=== PATIENT | male | born 1995 | race Hispanic/Latino ===

== ENCOUNTER 2021-03-08 15:21 | Inpatient (IN) | payer SELFPAY ==
[~2021-03-08] VITALS: Ht 167.6 cm; Wt 77.0 kg
[~2021-03-08 15:21] MED LIST: LORTAB5 PO; NO
--- NOTE | 2021-03-08 15:45 | NUR ---
PT HAS KUSMAL RESPIRATIONS, AOX3, TACHYPNEA AND TACHYCARDIC AT 140. PT STATES HE HAS NO MEDICAL ISSUES, BG OF 461 ON ACCUCHECK.
[2021-03-08 16:19] LABS: IMMATURE GRANULOCYTES 0.3 % (0.0-5.0); MEAN CORPUSCULAR HGB 32.4 pG CALC (26.0-32.0); MEAN CORPUSCULAR HGB CONC 34.2 g/dL CAL (32.0-36.0); NEUT# 4.3 thou/uL (1.82-7.42); RED BLOOD COUNT 5.09 mill/uL (4.70-6.10); RED CELL DISTRI WIDTH 12.5 % (11.5-15.5)
[2021-03-08 16:21] LABS: HEMATOCRIT 48.2 % (39.0-50.0); HEMOGLOBIN 16.5 g/dl (14.0-18.0); MEAN CELL VOLUME 94.7 fL CALC (80.0-100.0)
[2021-03-08 16:32] LABS: ALBUMIN 4.8 g/dL (3.2-5.0); ALKALINE PHOSPHATASE 149 u/l (38-126); BUN 10 mg/dL (9-20); BUN/CREATININE RATIO 10 (12-20 (CALC)); CHLORIDE 97 mmol/l (95-108); CREATININE 1.1 mg/dL (0.7-1.3); GFR > 60 ML/MIN (>=60 (CALC)); GFR FOR AFR.AMER. > 60 ML/MIN (>=60 (CALC)); POTASSIUM 3.3 mmol/l (3.5-5.1); SGOT/AST 19 u/l (17-59); SODIUM 136 mmol/l (137-146); TOTAL PROTEIN 7.9 g/dL (6.3-8.2)
--- NOTE | 2021-03-08 16:33 | NUR ---
PT SITTING IN BED, AOX3, RESPIRATORY DISTRESS NOTED AND PT ON CONTINUOUS CARDIAC MONITORING
[2021-03-08 16:34] LABS: URINE BLOOD DIPSTICK SMALL (NEGATIVE); URINE COLOR YELLOW; URINE GLUCOSE - DIPSTICK >=1000 mg/dL (NEGATIVE); URINE KETONE >=80 mg/dL (NEGATIVE); URINE LEUK ESTERASE NEGATIVE (NEGATIVE); URINE PROTEIN - DIPSTICK 30 mg/dL (NEG-TRACE); URINE SPECIFIC GRAVITY 1.025; URINE UROBILINOGEN - DIPSTICK 0.2 E.U./dL (0.2)
[2021-03-08 16:37] LABS: ANION GAP 37 (6-22 (CALC)); CARBON DIOXIDE < 5 mmol/l (22-30)
[2021-03-08 16:39] LABS: URINE BILIRUBIN - DIPSTICK NEGATIVE (NEGATIVE); URINE NITRITE - DIPSTICK NEGATIVE (Negative)
[2021-03-08 16:44] LABS: MYOGLOBIN 97 ng/mL (0 - 121)
[2021-03-08 17:05] LABS: URINE WBC 0-2 WBC/hpf (0-5)
--- NOTE | 2021-03-08 17:33 | NUR ---
GAVE REPORT TO SRAVAN WALKER, AWAITING COVID RESULTS TO TRANSPORT PT TO FLOOR. CARDIAC MONITORING BEDSIDE
--- NOTE | 2021-03-08 17:50 | NUR ---
PT TRANSPORTED TO ICU WITH BOTTLE CAPPING MACHINE OPERATOR
[2021-03-08 18:36] LABS: ANION GAP 33 (6-22 (CALC)); BUN 11 mg/dL (9-20); BUN/CREATININE RATIO 11 (12-20 (CALC)); CHLORIDE 99 mmol/l (95-108); GFR > 60 ML/MIN (>=60 (CALC)); GFR FOR AFR.AMER. > 60 ML/MIN (>=60 (CALC)); POTASSIUM 3.3 mmol/l (3.5-5.1); SODIUM 134 mmol/l (137-146)
[2021-03-08 18:46] LABS: CARBON DIOXIDE 5 mmol/l (22-30)
--- NOTE | 2021-03-08 18:50 | NUR ---
SBAR RECEIVED FROM DENISE HINSON.
[2021-03-08 19:00] VITALS: BP 119/83
--- NOTE | 2021-03-08 19:50 | NUR ---
ASSESSMENT COMPLETE. PATIENT RESTING QUIELTY, NO DISTRESS NOTED. DENIES PAIN AT THIS TIME. INSULIN DRIP AT 4 UNITS/HR, BG 338 @ 1930. SECOND LITER OF NORMAL SALINE BOLUS INFUSING, PATIENT TOLERATING WELL. NO CONCERNS EXPRESSED AT THIS TIME, CALL LIGHT WITHIN REACH.
[2021-03-08 20:00] VITALS: BP 116/81
[2021-03-08 21:00] VITALS: BP 108/78
[2021-03-08 21:52] LABS: BUN 11 mg/dL (9-20); BUN/CREATININE RATIO 13 (12-20 (CALC)); CHLORIDE 103 mmol/l (95-108); CREATININE 0.8 mg/dL (0.7-1.3); GFR > 60 ML/MIN (>=60 (CALC)); GFR FOR AFR.AMER. > 60 ML/MIN (>=60 (CALC)); SODIUM 134 mmol/l (137-146)
[2021-03-08 21:59] LABS: ANION GAP 26 (6-22 (CALC))
[2021-03-08 22:00] VITALS: BP 102/75
[2021-03-08 22:00] LABS: CARBON DIOXIDE 8 mmol/l (22-30)
--- NOTE | 2021-03-08 22:35 | NUR ---
BG 267, INSULIN DRIP TITRATED DOWN TO 3 UNITS/HR. MAGNESIUM LEVEL REPORTED 0.7, MAGNESIUM 2 GM INITIATED.
[2021-03-08 23:00] VITALS: BP 106/73
[2021-03-09] VITALS (17 sets, daily range): BP systolic 95–132; BP diastolic 59–84
--- NOTE | 2021-03-09 00:39 | NUR ---
RESTING QUIETLY IN BED. BG 242, NO CHANGE TO INSULIN DRIP. MAGNESIUM BAG 1 OF 2 COMPLETE, BAG 2 STARTED. PATIENT STABLE, NO DISTRESS NOTED. CALL LIGHT WITHIN REACH.
[2021-03-09 01:45] LABS: ANION GAP 22 (6-22 (CALC)); BUN 10 mg/dL (9-20); BUN/CREATININE RATIO 14 (12-20 (CALC)); CARBON DIOXIDE 10 mmol/l (22-30); CHLORIDE 104 mmol/l (95-108); CREATININE 0.7 mg/dL (0.7-1.3); GFR > 60 ML/MIN (>=60 (CALC)); GFR FOR AFR.AMER. > 60 ML/MIN (>=60 (CALC)); POTASSIUM 3.1 mmol/l (3.5-5.1); SODIUM 133 mmol/l (137-146)
--- NOTE | 2021-03-09 03:10 | NUR ---
CLARIFICATION RECEIVED FROM DR. OSORIO. TOTAL 4GM MAGNESIUM TO BE GIVEN.
--- NOTE | 2021-03-09 04:30 | NUR ---
BG 194. IVF'S CHANGED PER PROTOCOL D5 1/2NS WITH 40MEQ KCL @150/HR. PATIENT INCONTINENT OF URINE. PARTIAL SPONGE BATH AND LINEN CHANGE COMPLETE. PATIENT DENIES PAIN AND NO DISTRESS NOTED. ASSISTED BACK ONTO BED. CALL LIGHT WITHIN REACH, INSTRUCTED TO CALL FOR ASSISTANCE.
[2021-03-09 06:10] LABS: ANION GAP 19 (6-22 (CALC)); BUN 9 mg/dL (9-20); BUN/CREATININE RATIO 14 (12-20 (CALC)); CARBON DIOXIDE 12 mmol/l (22-30); CHLORIDE 106 mmol/l (95-108); CREATININE 0.7 mg/dL (0.7-1.3); GFR > 60 ML/MIN (>=60 (CALC)); GFR FOR AFR.AMER. > 60 ML/MIN (>=60 (CALC)); POTASSIUM 3.2 mmol/l (3.5-5.1); SODIUM 134 mmol/l (137-146)
--- NOTE | 2021-03-09 08:09 | NUR ---
PT SEEN AWAKE, ALERT, ORIENTED X 3, PERHAPS A BIT FOGGY THIS MORNING. LUNGS CLEAR, RA. PT ABLE TO SWALLOW POTASSIUM PILLS WITHOUT DIFFICULTY. INSULIN DRIP CHANGED FROM 2 UP TO 3 PER SCALE AND BS 247.
[2021-03-09 10:31] LABS: ANION GAP 17 (6-22 (CALC)); BUN 9 mg/dL (9-20); BUN/CREATININE RATIO 14 (12-20 (CALC)); CHLORIDE 104 mmol/l (95-108); CREATININE 0.6 mg/dL (0.7-1.3); GFR > 60 ML/MIN (>=60 (CALC)); GFR FOR AFR.AMER. > 60 ML/MIN (>=60 (CALC)); POTASSIUM 2.8 mmol/l (3.5-5.1); SODIUM 133 mmol/l (137-146)
[2021-03-09 10:32] LABS: CARBON DIOXIDE 15 mmol/l (22-30)
--- NOTE | 2021-03-09 13:21 | NUR ---
PT APPEARS GROGGY, MOVES SLOWLY IN ROOM. INSULIN DRIP CONTINUES, IVF CONTINUES.
[2021-03-09 13:31] LABS: ANION GAP 18 (6-22 (CALC)); BUN 9 mg/dL (9-20); BUN/CREATININE RATIO 16 (12-20 (CALC)); CARBON DIOXIDE 15 mmol/l (22-30); CHLORIDE 104 mmol/l (95-108); CREATININE 0.6 mg/dL (0.7-1.3); GFR > 60 ML/MIN (>=60 (CALC)); GFR FOR AFR.AMER. > 60 ML/MIN (>=60 (CALC)); POTASSIUM 3.3 mmol/l (3.5-5.1); SODIUM 133 mmol/l (137-146)
--- NOTE | 2021-03-09 16:04 | NUR ---
PT WITH VISITOR AT BEDSIDE, CONTINUES AT REST IN NO ACUTE DISTRESS. ACCUCHECKS CONTINUE HOURLY, INSULIN DRIP TITRATED ACCORDINGLY.
[2021-03-09 18:05] LABS: ANION GAP 13 (6-22 (CALC)); BUN 7 mg/dL (9-20); BUN/CREATININE RATIO 12 (12-20 (CALC)); CARBON DIOXIDE 18 mmol/l (22-30); CHLORIDE 104 mmol/l (95-108); CREATININE 0.6 mg/dL (0.7-1.3); GFR > 60 ML/MIN (>=60 (CALC)); GFR FOR AFR.AMER. > 60 ML/MIN (>=60 (CALC)); POTASSIUM 3.2 mmol/l (3.5-5.1); SODIUM 132 mmol/l (137-146)
--- NOTE | 2021-03-09 18:45 | NUR ---
SBAR RECEIVED FROM DENISE BATES.
--- NOTE | 2021-03-09 20:11 | NUR ---
ASSESSMENT COMPLETE. PATIENT RESTING COMFORTABLY IN BED. HOURLY ACCU CHECK 347. PER ORDERS LEVEMIR 15 UNITS SUBCUTANEOUS, MAGNESIUM 2GM IV AND KCL 40MEQ PO ADMINISTERED. PATIENT TOLERATED WELL. DENIES PAIN AT THIS TIME, NO CONCERNS EXPRESSED. CALL LIGHT WITHIN REACH.
--- NOTE | 2021-03-09 21:37 | NUR ---
PM MEDS GIVEN. IVF'S AND INSULIN DRIP DISCONTINUED PER ORDER. BG 307
[2021-03-09 21:47] LABS: ANION GAP 15 (6-22 (CALC)); BUN 6 mg/dL (9-20); BUN/CREATININE RATIO 10 (12-20 (CALC)); CARBON DIOXIDE 16 mmol/l (22-30); CHLORIDE 102 mmol/l (95-108); CREATININE 0.6 mg/dL (0.7-1.3); GFR > 60 ML/MIN (>=60 (CALC)); GFR FOR AFR.AMER. > 60 ML/MIN (>=60 (CALC)); POTASSIUM 3.2 mmol/l (3.5-5.1); SODIUM 130 mmol/l (137-146)
[2021-03-10] VITALS (9 sets, daily range): BP systolic 99–122; BP diastolic 68–85
--- NOTE | 2021-03-10 00:38 | NUR ---
PATIENT AWAKE IN BED. BG 258, TRENDING DOWN. PATIENT DENIES PAIN AT THIS TIME. NO DISTRESS NOTED. NO CONCERNS EXPRESSED. CALL LIGHT WITHIN REACH, INSTRUCTED TO CALL FOR ASSISTANCE.
--- NOTE | 2021-03-10 04:36 | NUR ---
PATIENT AWAKENED BY BAKER FOR A.M. LABS. PATIENT STABLE, DENIES PAIN. NO DISTRESS NOTED. CALL LIGHT WITHIN REACH.
[2021-03-10 05:07] LABS: MEAN CORPUSCULAR HGB 32.6 pG CALC (26.0-32.0); MEAN CORPUSCULAR HGB CONC 37.8 g/dL CAL (32.0-36.0); NEUT# 1.63 thou/uL (1.82-7.42); RED BLOOD COUNT 3.99 mill/uL (4.70-6.10)
[2021-03-10 05:28] LABS: ALKALINE PHOSPHATASE 114 u/l (38-126); ANION GAP 15 (6-22 (CALC)); BUN 5 mg/dL (9-20); BUN/CREATININE RATIO 9 (12-20 (CALC)); CARBON DIOXIDE 19 mmol/l (22-30); CHLORIDE 103 mmol/l (95-108); CREATININE 0.6 mg/dL (0.7-1.3); GFR > 60 ML/MIN (>=60 (CALC)); GFR FOR AFR.AMER. > 60 ML/MIN (>=60 (CALC)); MAGNESIUM 1.3 mg/dL (1.6-2.3); POTASSIUM 2.8 mmol/l (3.5-5.1); SGOT/AST 21 u/l (17-59); SODIUM 134 mmol/l (137-146)
[2021-03-10 05:31] LABS: ALBUMIN 3.4 g/dL (3.2-5.0)
[2021-03-10 06:25] LABS: HEMATOCRIT 34.4 % (39.0-50.0); MEAN CELL VOLUME 86.2 fL CALC (80.0-100.0)
--- NOTE | 2021-03-10 08:15 | NUR ---
HAVING BREAKFAST AT THIS TIME.
--- NOTE | 2021-03-10 09:00 | NUR ---
MAG RIDER INFUSING AT THIS TIME.
--- NOTE | 2021-03-10 09:30 | NUR ---
DR PAK IN WITH PT.
[2021-03-10] MEDS ORDERED: NOVOLIN N100 UNIT/M SC ×2 (10:29→12:59)
--- NOTE | 2021-03-10 11:22 | NUR ---
EDUCATED ON HOW TO USE ACCU CHECK MACHINE AND HOW TO CHECK SUGAR. BY MOLD LOFT WORKER.
--- NOTE | 2021-03-10 12:55 | NUR ---
BROTHER IN TO TRANSLATOR/INTERPRETER PT. PRESCRIPTIONS FOR GLUCAMETER, TEST STRIPES, LANCETS, AND 70/30 INSULIN. AMBULATED SAFELY OUT OF UNIT.
== END 2021-03-10 12:50 | disposition home or self-care (01) | DRG 639 ==
LOC: ED 15:21 → ED-I 16:50 → ED 17:08 → ICU 17:09
PROVIDERS: Emergency Medicine; Nurse Practitioner; ADMIT Internal Medicine; ATTEND Internal Medicine
DX: E10.10 Type 1 diabetes mellitus with ketoacidosis without coma (principal); E87.6 Hypokalemia; E83.42 Hypomagnesemia; Z20.822 Contact with and (suspected) exposure to COVID-19
CPT/HCPCS: J3475

== ENCOUNTER 2021-03-17 11:19 | Emergency (ER) | payer SELFPAY ==
[~2021-03-17] VITALS: Ht 167.6 cm; Wt 75.0 kg
[~2021-03-17 11:19] MED LIST changes: +NOVOLIN N100 UNIT/M SC
[2021-03-17 13:04] LABS: URINE BILIRUBIN - DIPSTICK NEGATIVE (NEGATIVE); URINE BLOOD DIPSTICK NEGATIVE (NEGATIVE); URINE COLOR YELLOW; URINE GLUCOSE - DIPSTICK >=1000 mg/dL (NEGATIVE); URINE KETONE NEGATIVE (NEGATIVE); URINE LEUK ESTERASE NEGATIVE (NEGATIVE); URINE PROTEIN - DIPSTICK NEGATIVE (NEG-TRACE); URINE UROBILINOGEN - DIPSTICK 0.2 E.U./dL (0.2)
[2021-03-17 13:09] LABS: URINE NITRITE - DIPSTICK NEGATIVE (Negative)
[2021-03-17 13:29] LABS: ALBUMIN 3.7 g/dL (3.2-5.0); ALKALINE PHOSPHATASE 120 u/l (38-126); BILIRUBIN, TOTAL 0.7 mg/dL (0.0-1.4); BUN 20 mg/dL (9-20); BUN/CREATININE RATIO 18 (12-20 (CALC)); CHLORIDE 93 mmol/l (95-108); CREATININE 1.1 mg/dL (0.7-1.3); GFR > 60 ML/MIN (>=60 (CALC)); GFR FOR AFR.AMER. > 60 ML/MIN (>=60 (CALC)); LIPASE 686 u/l (23-300); SODIUM 133 mmol/l (137-146); TOTAL PROTEIN 6.5 g/dL (6.3-8.2)
[2021-03-17 13:36] LABS: HEMATOCRIT 36.2 % (39.0-50.0); HEMOGLOBIN 12.9 g/dl (14.0-18.0); IMMATURE GRANULOCYTES 0.1 % (0.0-5.0); MEAN CORPUSCULAR HGB 32.6 pG CALC (26.0-32.0); MEAN CORPUSCULAR HGB CONC 35.6 g/dL CAL (32.0-36.0); NEUT# 4.72 thou/uL (1.82-7.42); RED BLOOD COUNT 3.96 mill/uL (4.70-6.10); RED CELL DISTRI WIDTH 13.3 % (11.5-15.5)
[2021-03-17 13:39] LABS: ANION GAP 8 (6-22 (CALC)); CARBON DIOXIDE 36 mmol/l (22-30); MEAN CELL VOLUME 91.4 fL CALC (80.0-100.0); POTASSIUM 4.3 mmol/l (3.5-5.1); SGOT/AST 66 u/l (17-59)
[2021-03-17 13:41] LABS: MAGNESIUM 0.9 mg/dL (1.6-2.3)
[2021-03-17 19:05] VITALS: BP 94/61
== END 2021-03-17 19:05 | disposition home or self-care (01) | DRG 639 ==
LOC: ED 11:19
PROVIDERS: Emergency Medicine
DX: E11.65 Type 2 diabetes mellitus with hyperglycemia (principal); E83.42 Hypomagnesemia; Z79.4 Long term (current) use of insulin
CPT/HCPCS: J3475

== ENCOUNTER 2021-03-27 10:51 | Emergency (ER) | payer SELFPAY ==
[2021-03-27 11:36] LABS: HEMATOCRIT 39.1 % (39.0-50.0); HEMOGLOBIN 13.7 g/dl (14.0-18.0); MEAN CELL VOLUME 92.7 fL CALC (80.0-100.0); MEAN CORPUSCULAR HGB 32.5 pG CALC (26.0-32.0); NEUT# 1.72 thou/uL (1.82-7.42); RED BLOOD COUNT 4.22 mill/uL (4.70-6.10); RED CELL DISTRI WIDTH 12.7 % (11.5-15.5)
[2021-03-27 11:57] LABS: ALBUMIN 3.9 g/dL (3.2-5.0); ALKALINE PHOSPHATASE 146 u/l (38-126); ANION GAP 11 (6-22 (CALC)); BILIRUBIN, TOTAL 0.8 mg/dL (0.0-1.4); BUN 21 mg/dL (9-20); BUN/CREATININE RATIO 26 (12-20 (CALC)); CARBON DIOXIDE 35 mmol/l (22-30); CHLORIDE 91 mmol/l (95-108); CREATININE 0.8 mg/dL (0.7-1.3); GFR > 60 ML/MIN (>=60 (CALC)); GFR FOR AFR.AMER. > 60 ML/MIN (>=60 (CALC)); POTASSIUM 4.6 mmol/l (3.5-5.1); SGOT/AST 97 u/l (17-59); SODIUM 132 mmol/l (137-146); TOTAL PROTEIN 6.6 g/dL (6.3-8.2)
[2021-03-27 12:27] LABS: MAGNESIUM 0.8 mg/dL (1.6-2.3)
[2021-03-27 14:51] LABS: URINE BILIRUBIN - DIPSTICK NEGATIVE (NEGATIVE); URINE BLOOD DIPSTICK NEGATIVE (NEGATIVE); URINE COLOR YELLOW; URINE GLUCOSE - DIPSTICK >=1000 mg/dL (NEGATIVE); URINE KETONE NEGATIVE (NEGATIVE); URINE LEUK ESTERASE NEGATIVE (NEGATIVE); URINE PH 7.5 (4.5-8.0); URINE PROTEIN - DIPSTICK NEGATIVE (NEG-TRACE); URINE UROBILINOGEN - DIPSTICK 0.2 E.U./dL (0.2)
[2021-03-27 14:52] LABS: URINE NITRITE - DIPSTICK NEGATIVE (Negative)
[2021-03-27] MEDS ORDERED: MAGNESIUM200 MG PO (17:15)
[2021-03-27 17:52] VITALS: BP 114/75
== END 2021-03-27 18:00 | disposition home or self-care (01) | DRG 641 ==
LOC: ED 10:51
PROVIDERS: Emergency Medicine
DX: E87.6 Hypokalemia (principal); E83.42 Hypomagnesemia; E11.65 Type 2 diabetes mellitus with hyperglycemia; Z79.4 Long term (current) use of insulin
CPT/HCPCS: J3475